=== PATIENT | female | born 1960 | race Caucasian/White ===

== ENCOUNTER 2017-09-03 21:48 | Emergency (ER) | payer OTHER ==
[~2017-09-03] VITALS: Ht 157.5 cm; Wt 63.1 kg
[2017-09-03 22:45] LABS: HEMATOCRIT 39.7 % (36.0-46.0); HEMOGLOBIN 14.1 G/DL (11.9-15.5); MCH 30.9 PG (29.0-34.0); MCHC 35.5 G/DL (30.0-36.0); MCV 86.9 FL (83-99); PLATELET COUNT 192 K/uL (156-360); RBC DIS.WIDTH-CV 11.5 % (11.8-14.6); RBC DIS.WIDTH-SD 36.2 % (39-53); RED BLOOD COUNT 4.57 M/uL (3.80-5.20); WHITE BLOOD COUNT 5.2 K/uL (4.1-10.2)
[2017-09-03 22:54] LABS: ALBUMIN 4.2 g/dL (3.2-4.8); CHLORIDE 100 mEq/L (99-109); POTASSIUM 4.3 mEq/L (3.7-5.4); SODIUM 139 mEq/L (136-147)
[2017-09-03 22:56] LABS: TOTAL PROTEIN 7.5 g/dL (6.4-8.3)
[2017-09-03 22:58] LABS: TOTAL BILIRUBIN 0.6 mg/dL (0.0-1.0)
[2017-09-03 23:00] LABS: ALKALINE PHOSPHATASE 121 IU/L (3-129); CREATININE 0.9 mg/dL (0.6-1.3); GFR ESTIMATE (CALCULATED) > 59 mL/min/
[2017-09-03 23:01] LABS: GLUCOSE 446 mg/dL (70-99); UREA NITROGEN (BUN) 13 mg/dL (9-23)
[2017-09-03 23:02] LABS: AST (GOT) 24 IU/L (2-34)
[2017-09-03 23:03] LABS: ALT (GPT) 40 IU/L (3-49)
[2017-09-03 23:42] LABS: LIPASE 29 U/L (1.0-51.0)
[2017-09-04 00:37] LABS: APPEARANCE CLEAR ((CLEAR)); BILIRUBIN NEGATIVE; BLOOD NEGATIVE; COLOR STRAW ((YELLOW)); GLUCOSE (STRIP) >=500; KETONES NEGATIVE; LEUKOCYTES NEGATIVE; NITRITE NEGATIVE; PROTEIN (STRIP) NEGATIVE; SPECIFIC GRAVITY 1.025 (1.000-1.030); UCUL ADDED? NO
[2017-09-04] MEDS ORDERED: BENTYL20 MG PO (01:45)
[2017-09-04] MEDS ORDERED: ZOFRAN ODT8 MG PO (01:45)
[2017-09-04 02:03] VITALS: BP 174/84
== END 2017-09-04 02:04 | disposition home or self-care (01) ==
LOC: EME 21:48
DX: E11.65 Type 2 diabetes mellitus with hyperglycemia (principal); G89.29 Other chronic pain; R10.9 Unspecified abdominal pain; R11.0 Nausea; R19.7 Diarrhea, unspecified; Z73.3 Stress, not elsewhere classified; Z79.84 Long term (current) use of oral hypoglycemic drugs
CPT/HCPCS: 80053; 81003; 82948; 83690; 85027; 99281; 99284; J2405; J7030